=== PATIENT | female | born 1985 | race Caucasian/White ===

== ENCOUNTER 2021-10-27 09:56 | Emergency (ER) | payer SELFPAY ==
[2021-10-27 10:15] VITALS: BP 121/88; PULSE 85; RESP 17; TEMP 36.6; O2SAT 99; BMI 35.6
--- NOTE | 2021-10-27 10:29 | W.ED.BACK ---
HPI - Back Pain/Injury General: Chief Complaint: Fall Stated Complaint: low back pain Time Seen by Provider: 10/27/21 09:59 Source: patient Mode of arrival: ambulatory Limitations: no limitations History of Present Illness: Patient is a 36-year-old female who presents to the ED today for evaluation of a fall/back injury that occurred 4 to 5 days ago when she slipped and fell going down a stair. She states her lower right back struck the edge of the stair. She has noticed significant ecchymosis to the area. She is continuing to be ambulatory without assistance since the fall. No other injuries or complaints at this time. She has no radicular symptoms. MD elicited complaint: back injury Pertinent past history: recent trauma Onset (ago): day(s) Timing: constant Severity: moderate Similar Symptoms Previously: No Location: lumbar spine and right lower back Radiation: none Exacerbating factors: movement and walking Relieving factors: other (motrin) Associated symptoms: Reports no associated symptoms; Deny abdominal pain, chills, difficulty walking, dysuria, fatigue, fever(s) or hematuria Treatments prior to arrival: NSAIDS Work related injury: No Review of Systems Const: Denies: fever(s), chills, body aches, fatigue or malaise Card: Denies: chest pain Resp: Denies: dyspnea GI: Denies: abdominal pain : Denies: flank pain, dysuria or hematuria Musc: Reports: back pain; Denies: neck pain, extremity pain, extremity swelling, joint pain or joint swelling Skin/Breast: Reports: other (bruising) Neuro: Denies: headache(s), numbness in extremities, weakness in extremities, sensory changes or difficulty walking Physical Exam Const: COMMON NORMALS: no acute distress, patient oriented x3, no limitations and alert GENERAL APPEARANCE: cooperative NUTRITIONAL APPEARANCE: overweight ORIENTATION/CONSCIOUSNESS: Yes awake, Yes oriented to person, Yes oriented to place and Yes oriented to time GI: COMMON NORMALS: Normal to inspection, nondistended, normoactive bowel sounds present, Soft to palpation and non-tender PALPATION: Yes Soft to palpation : COMMON NORMALS: Yes no CVA tenderness BLADDER/KIDNEY EXAM: Yes no CVA tenderness Back/Pelvis: COMMON NORMALS: no CVA tenderness THORACIC SPINE/UPPER BACK: No thoracic spinal tenderness, No paraspinal muscle tenderness and No paraspinal muscle spasm LUMBAR SPINE/LOWER BACK: Yes lumbar ROM normal, Yes paraspinal muscle tenderness and No paraspinal muscle spasm SACRUM: tenderness COCCYX: Coccyx tenderness present BACK IMAGE (FEMALE): 1. large hematoma/ecchymosis Extremity: COMMON NORMALS: normal to inspection, full ROM and capillary refill normal GENERAL: Yes normal exam except as noted Neuro: COMMON NORMALS: patient oriented x3, moves all extremities, no focal motor deficits, no sensory deficits noted and gait normal SENSORIUM/ORIENTATION: Yes alert, Yes oriented to person, Yes oriented to place and Yes oriented to time MOTOR EXAM: 5/5 motor strength present throughout Course Vital Signs: Vital signs: Vital Signs Temperature 98 F 10/27/21 10:15 Pulse Rate 85 10/27/21 10:15 Respiratory Rate 17 10/27/21 10:15 Blood Pressure 121/88 10/27/21 10:15 Pulse Oximetry 99 10/27/21 10:15 MDM - Back Pain/Injury Medical Decision Making XRs negative. Recommend conservative therapies at home. Follow-up with primary care in 3 to 5 days if symptoms do not seem to be improving. Return to ED precautions given. Will prescribe a small amount of pain medications as patient states she is having trouble sleeping secondary to discomfort. Labs Radiology Impressions Lumbar Spine X-Ray 10/27/21 10:42 IMPRESSION: No acute abnormality. Pelvis X-Ray 10/27/21 10:42 IMPRESSION: No acute abnormality. Sacrum and Coccyx X-Ray 10/27/21 10:42 IMPRESSION: No acute abnormality. Discharge Plan Discharge Patient Disposition: Home Clinical Impression: Contusion of back Qualifiers: Encounter type: initial encounter Laterality: right Qualified Code(s): S20.221A - Contusion of right back wall of thorax, initial encounter Traumatic hematoma of lower back Qualifiers: Encounter type: initial encounter Qualified Code(s): S30.0XXA - Contusion of lower back and pelvis, initial encounter Condition: Stable Prescriptions: New tramadol 50 mg tablet 50 mg PO Q6H PRN (Reason: pain) Qty: 14 0RF Discharge Orders: Discharge ED (Routine); Ordered 10/27/21 Ordered By: Annamaria Fields Coding Level of Care Code ED Employee Benefits Attorney for Chg Fwd Exam Problem Focused
--- NOTE | 2021-10-27 10:42 | XR_ITS ---
WS: [id number] XR lumbar spine 2-3V* [id number] REASON FOR EXAM: fall, ecchymosis FINDINGS: Mild rotatory scoliosis convex left. No vertebral body compression deformity or focal lesion. Intervertebral disc spaces are relatively well-preserved. No facet joint abnormality. No spondylolisthesis. XR/XR lumbar spine 2-3V* [id number] IMPRESSION: No acute abnormality.
--- NOTE | 2021-10-27 10:42 | XR_ITS ---
WS: [id number] XR pelvis 1-2V* [id number] REASON FOR EXAM: fall, ecchymosis FINDINGS: Sacrum and iliac wings are intact. Superior and inferior pubic ramus are normal. No abnormality of the hips is identified. XR/XR pelvis 1-2V* [id number] IMPRESSION: No acute abnormality.
--- NOTE | 2021-10-27 10:42 | XR_ITS ---
WS: [id number] XR sacrum coccyx min 2V [id number] REASON FOR EXAM: fall, ecchymosis FINDINGS: No fracture or dislocation is identified. XR/XR sacrum coccyx min 2V [id number] IMPRESSION: No acute abnormality.
== END 2021-10-27 12:27 | disposition home or self-care (01) ==
PROVIDERS: Emergency Provider Physician Assistant
DX: S20.221A Contusion of right back wall of thorax, initial encounter (principal); S30.0XXA Contusion of lower back and pelvis, initial encounter; W01.0XXA Fall on same level from slipping, tripping and stumbling without subsequent striking against object, initial encounter
CPT/HCPCS: 72100; 72170; 72220; 99283

== ENCOUNTER 2022-07-29 02:53 | Emergency (ER) | payer SELFPAY ==
[2022-07-29 03:06] VITALS: BP 114/87; PULSE 119; RESP 18; TEMP 36.5; O2SAT 98; BMI 32.0
--- NOTE | 2022-07-29 03:24 | W.ED.FEMALGU ---
HPI - Female Genitourinary General: Chief complaint: Urogenital-Female Stated complaint: abdomen pain, discharge, Possible STD's Time Seen by Provider: 07/29/22 02:55 Source: patient Mode of arrival: ambulatory Limitations: no limitations History of Present Illness: 37-year-old female states she been having vaginal discharge and with some pelvic pain over the last week. She is here with another individual she is sexually active with with similar symptoms. States she had multiple sexual partners last 2 to 3 weeks. She denies any severe pain denies any fever denies any vomiting or diarrhea. Associated symptoms: Deny abdominal pain or nausea Review of Systems Const: Denies: fever(s) or chills Card: Denies: chest pain GI: Denies: abdominal pain, nausea or vomiting : Reports: dysuria Musc: Denies: back pain Skin/Breast: Denies: rash PFSH ED PFSH: Medical History (Updated 07/29/22 @ 03:51 by Soraya Rubalcava MD) No pertinent past medical history Social History (Updated 07/29/22 @ 03:25 by Soraya Rubalcava MD) Substance/Drug Use: unknown Physical Exam Const: COMMON NORMALS: no acute distress, patient oriented x3 and healthy appearing HENMT: COMMON NORMALS: normocephalic and atraumatic HEAD & SCALP: normocephalic and atraumatic Eye: COMMON NORMALS: conjunctivae normal CONJUNCTIVA: Yes conjunctivae normal Neck/C-Spine: COMMON NORMALS: full ROM Chest: COMMONS NORMALS: normal inspection of the chest Resp: COMMON NORMALS: normal respiratory effort GI: COMMON NORMALS: Normal to inspection, nondistended, normoactive bowel sounds present, Soft to palpation, non-tender and no masses PALPATION: Yes Soft to palpation Extremity: COMMON NORMALS: normal to inspection and full ROM Neuro: COMMON NORMALS: patient oriented x3, moves all extremities and no focal motor deficits Psych: COMMON NORMALS: mental status grossly normal, Normal thought process present and cooperative THOUGHT PROCESS: Normal thought process present Skin: COMMON NORMALS: no rashes or lesions noted and no wounds GENERAL SKIN EXAM: no rashes or lesions noted Course Vital Signs: Vital signs: Vital Signs Temperature 97.7 F 07/29/22 03:06 Pulse Rate 119 H 07/29/22 03:06 Respiratory Rate 18 07/29/22 03:06 Blood Pressure 114/87 07/29/22 03:06 Pulse Oximetry 98 07/29/22 03:06 Oxygen Delivery Me thod Room Air 07/29/22 03:06 MDM - Female Medical Decision Making Patient presents here with vaginal discharge likely an STD did give her Rocephin we will prescribe her doxycycline she did have trichomonas as well we will give her Flagyl she is stable for discharge she is to follow-up with PCP and return if worsening. Discharge Plan Discharge Patient Disposition: Home Clinical Impression: STD (female) Prescriptions: No Action tramadol 50 mg tablet 50 mg PO Q6H PRN (Reason: pain) Qty: 14 0RF Discharge Orders: Discharge ED (Routine); Ordered 07/29/22 Ordered By: Soraya Rubalcava Discharge Diet: Advance as tolerated Discharge Activity: Resume usual activity Patient Instructions: Sexually Transmitted Diseases (ED) Coding Level of Care Code ED Client Services Coordinator for Kimberly Dean
[2022-07-29] MEDS: cefTRIAXone 1,000 MG in water for injection-sterile 2.1 ML 2 MG IM (03:30)
[2022-07-29] MEDS: metroNIDAZOLE 500 MG Tablet 2000 MG PO (04:22)
--- NOTE | 2022-07-30 14:55 | DCPLANNER ---
manager project management called patient due to no primary care physician - no answer at this time.
== END 2022-07-29 04:23 | disposition home or self-care (01) ==
PROVIDERS: Emergency Provider Emergency Medicine
DX: A64 Unspecified sexually transmitted disease (principal)
CPT/HCPCS: 87210; 87491; 87591; 96365; 96366; 96372; 99284; J0696

== ENCOUNTER 2022-09-27 11:10 | Emergency (ER) | payer SELFPAY ==
[2022-09-27 11:12] VITALS: BP 137/106; PULSE 109; RESP 18; TEMP 36.9; O2SAT 96
--- NOTE | 2022-09-27 11:27 | XR_ITS ---
WS: [id number] EXAMINATION: XR finger LT min 2V [id number] REASON FOR EXAM: pain COMPARISON: None available. ORDER DATE: 09/27/2022 11:40 AM FINDINGS: There is no sign of any acute osseous or articular abnormality. There are no specific soft tissue abn ormalities. XR/XR finger LT min 2V [id number] IMPRESSION: No acute osseous change
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
[2022-09-27 11:31] LABS: Basophils % 0.2 %; Eosinophils # 0.1 10^3/uL (0.0-0.8); Hemoglobin 13.3 g/dL (11.5-15.3); Lymphocytes # 3.2 10^3/uL (0.8-4.8); Lymphocytes % 23.7 %; Mean Corpuscular HGB Conc 32.4 g/dL (30.0-36.0); Mean Corpuscular Hemoglobin 28.7 pg (28.0-34.0); Mean Corpuscular Volume 88.6 fl (81-99); Monocytes % 7.6 %; Neutrophils # 9.11 10^3/uL (1.8-7.7); Neutrophils % 67.2 %; Nucleated Red Blood Cells % 0 %; Platelet Count 254 10^3/cmm (130-400); Red Blood Count 4.63 10^6/uL (4.1-5.3); Red Cell Distribution Width 13.2 % (12.1-15.1); White Blood Count 13.6 10^3/uL (4.0-10.0)
[2022-09-27] MEDS: sodium chloride 0.9% 1,000 ML 999 ML IV (11:35)
[2022-09-27 11:42] VITALS: BP 134/82; PULSE 96; O2SAT 98
[2022-09-27 11:52] LABS: Alanine Aminotransferase 12 U/L (0-33); Albumin Level 3.9 g/dL (3.5-5.2); Alkaline Phosphatase 60 U/L (35-105); Blood Urea Nitrogen 13 mg/dL (6-20); Carbon Dioxide 20 mmol/L (22-29); Chloride 104 mmol/L (98-107); Globulin 3.3 g/dL (1.3-4.6); Glomerular Filtration Rate 113.8 mL/min (90-130); Glucose 94 mg/dL (65-115); Osmolality Calculated 286 mOsm/kg (285-295); Sodium 138 mmol/L (136-145); Total Bilirubin 0.9 mg/dL (0.15-1.2); Total Protein 7.2 g/dL (6.6-8.7)
[2022-09-27 11:55] LABS: Anion Gap 18.3 (5-19); Aspartate Amino Transferase 15 U/L (0-32); Potassium 4.3 mmol/L (3.5-5.1)
[2022-09-27 11:58] LABS: HCG, Serum Qual Negative (Negative)
[2022-09-27 12:46] VITALS: BP 124/81; PULSE 110; O2SAT 99
== END 2022-09-27 13:36 | disposition home or self-care (01) ==
PROVIDERS: Emergency Provider Family Medicine
DX: N92.1 Excessive and frequent menstruation with irregular cycle (principal)
CPT/HCPCS: 73140; 80053; 84703; 85025; 96360; 99284; J7030

== ENCOUNTER 2022-11-05 14:52 | Emergency (ER) | payer SELFPAY ==
[2022-11-05 14:54] VITALS: BP 122/74; PULSE 108; RESP 18; TEMP 37; O2SAT 98; BMI 28.3
--- NOTE | 2022-11-05 15:04 | ECG_ITS ---
[facility] Test Date: 2022-11-05 Pat Name: Janay Lau Department: Room: Gender: Female Route Sales Manager: : 1985 Requested By: Chris Costa Order Number: [id number] Karla MD: Diane Viveros M.D. Measurements Intervals [place] Rate: 101 P: 45 MD: 131 QRS: 47 QRSD: 89 T: 36 QT: 345 QTc: 447 Interpretive Statements SINUS TACHYCARDIA ABNORMAL RHYTHM ECG No previous ECG available for comparison Electronically Signed On 11-05-2022 18:39:24 CDT by Diane Viveros M.D. [id number]
--- NOTE | 2022-11-05 15:04 | XR_ITS ---
WS: [id number] EXAMINATION: XR chest 1V portable [id number] REASON FOR EXAM: syncope COMPARISON: None available. ORDER DATE: 11/05/2022 3:04 PM TECHNIQUE: A single, portable frontal chest x-ray was obtained. X-RAY FINDINGS: The lungs are clear. Pleural spaces are clear. No pleural effusions or pneumothorax. Cardiomediastinal silhouette is normal. No evidence for pulmonary edema. Soft tissue and osseous structures are unremarkable. No tubes or lines are present. XR/XR chest 1V portable [id number] IMPRESSION: Unremarkable frontal portable chest x-ray.
--- NOTE | 2022-11-05 15:14 | ED_ITS ---
HPI - Syncope General: Chief Complaint: Syncope Stated Complaint: heat exhaustion, syncope Time Seen by Provider: 11/05/22 14:55 History of Present Illness: Patient presents to the ER by EMS with complaints of syncopal episode. Patient was walking around outside in the sun all day long by [employer] when she walked up inside and collapsed at the register. Patient does have a history of IV drug use but claims she has not used drugs today. Patient is alert and oriented but lethargic appearing upon arrival. States she does not have a history of passing out. Patient did not hit her head and complains of no pain Review of Systems General: Reports: 10 or more systems reviewed and unremarkable except in HPI and below PFSH ED PFSH: Medical History No pertinent past medical history Social History Substance/Drug Use: unknown Physical Exam Const: COMMON NORMALS: no acute distress, average body habitus, patient orient ed x3, no limitations, healthy appearing, alert and well nourished HENMT: COMMON NORMALS: normocephalic, atraumatic, hearing grossly normal bilaterally, external ears normal, Normal external nose present and moist oral mucous membranes HEAD & SCALP: normocephalic and atraumatic NOSE: Normal external nose present EXTERNAL EAR: Yes external ears normal Eye: COMMON NORMALS: Equal, round and reactive pupils present, EOMs intact bilaterally, conjunctivae normal and no scleral icterus CONJUNCTIVA: Yes conjunctivae normal PUPIL: Yes Equal, round and reactive pupils present Neck/C-Spine: COMMON NORMALS: full ROM, no lymphadenopathy, supple, no meningeal signs, no JVD and Thyroid normal THYROID: Thyroid normal Chest: COMMONS NORMALS: normal inspection of the chest and normal palpation of entire chest wall Resp: COMMON NORMALS: normal respiratory effort, No retractions, No use of accessory muscles and clear to auscultation bilaterally AUSCULTATION: clear to auscultation bilaterally Cardio: COMMON NORMALS: no JVD, regular rate, regular rhythm, S1 normal heart sound present, S2 normal heart sound present, No gallops present (Cardio), No clicks present (Cardio), No murmurs present (Cardio) and No rub (Cardio) RATE: regular rate RHYTHM: regular rhythm HEART SOUNDS: S1 normal heart sound present and S2 normal heart sound present GI: COMMON NORMALS: Normal to inspection, nondistended, normoactive bowel sounds present, Soft to palpation, non-tender, No hepatosplenomegaly present and no masses PALPATION: Yes Soft to palpation and Yes No hepatosplenomegaly present : COMMON NORMALS: Yes no CVA tenderness BLADDER/KIDNEY EXAM: Yes no CVA tenderness Back/Pelvis: COMMON NORMALS: no CVA tenderness Neuro: COMMON NORMALS: patient oriented x3 SENSORIUM/ORIENTATION: Yes alert MENINGEAL SIGNS: Yes no meningeal signs Course Vital Signs: Vital signs: Vital Signs Temperature 98.6 F 11/05/22 14:54 Pulse Rate 74 11/05/22 16:30 Respiratory Rate 18 11/05/22 16:30 Blood Pressure 122/74 11/05/22 15:29 Pulse Oximetry 94 11/05/22 16:30 Oxygen Delivery Me thod Room Air 11/05/22 16:30 MDM - Syncope Medical Decision Making Presents the ER by EMS with complaints of syncope at [facility]. Drowsy appearing. Patient is a known drug user. Lab work was obtained which was unremarkable. Patient pulled out her own IV and peed in the trash can because she said no one would respond to her and help her out. Patient be discharged home. Differential Diagnosis Likely dehydration; Unlikely syncope due to orthostatic hypotension, vasovagal syncope, complete atrioventricular block, subarachnoid hemorrhage or pulmonary embolism Medical Records I reviewed the patient's medical records. Lab Data I reviewed the patient's lab results. 11/05/22 15:00 11/05/22 15:00 Radiology Impressions Chest X-Ray 11/05/22 15:04 IMPRESSION: Unremarkable frontal portable chest x-ray. Laboratory Results WBC 8.9 10^3/uL (4.0-10.0) 11/05/22 15:00 RBC 4.50 10^6/uL (4.1-5.3) 11/05/22 15:00 Hgb 12.8 g/dL (11.5-15.3) 11/05/22 15:00 Hct 38.9 % (37.0-47.0) 11/05/22 15:00 MCV 86.4 fl (81-99) 11/05/22 15:00 MCH 28.4 pg (28.0-34.0) 11/05/22 15:00 MCHC 32.9 g/dL (30.0-36.0) 11/05/22 15:00 RDW 12.9 % (12.1-15.1) 11/05/22 15:00 Plt Count 250 10^3/cmm (130-400) 11/05/22 15:00 MPV 9.6 fL (7.4-10.4) 11/05/22 15:00 Neut % (Auto) 63.5 % 11/05/22 15:00 Lymph % (Auto) 25.5 % 11/05/22 15:00 Griggs % (Auto) 8.5 % 11/05/22 15:00 Eos % (Auto) 1.9 % 11/05/22 15:00 Baso % (Auto) 0.3 % 11/05/22 15:00 Neut # (Auto) 5.63 10^3/uL (1.8-7.7) 11/05/22 15:00 Lymph # (Auto) 2.3 10^3/uL (0.8-4.8) 11/05/22 15:00 [place]iggs # (Auto) 0.8 10^3/uL (0.2-0.9) 11/05/22 15:00 Eos # (Auto) 0.2 10^3/uL (0.0-0.8) 11/05/22 15:00 Baso # (Auto) 0.0 10^3/uL (0.0-0.1) 11/05/22 15:00 Nucleated RBC % (auto) 0 % 11/05/22 15:00 Nucleated RBCs # 0.0 /100WBC 11/05/22 15:00 Sodium 139 mmol/L (136-145) 11/05/22 15:00 Potassium 3.3 mmol/L (3.5-5.1) L 11/05/22 15:00 Chloride 102 mmol/L (98-107) 11/05/22 15:00 Carbon Dioxide 26 mmol/L (22-29) 11/05/22 15:00 Anion Gap 14.3 (5-19) 11/05/22 15:00 BUN 9 mg/dL (6-20) 11/05/22 15:00 Creatinine 0.7 mg/dL (0.5-0.9) 11/05/22 15:00 GFR Calculation 95.2 mL/min (90-130) 11/05/22 15:00 Glucose 113 mg/dL (65-115) 11/05/22 15:00 Calculated Osmolality 287 mOsm/kg (285-295) 11/05/22 15:00 Calcium 8.7 mg/dL (8.5-10.5) 11/05/22 15:00 Magnesium 2.1 mg/dL (1.7-2.3) 11/05/22 15:00 Total Bilirubin 0.6 mg/dL (0.15-1.2) 11/05/22 15:00 AST 11 U/L (0-32) 11/05/22 15:00 ALT 10 U/L (0-33) 11/05/22 15:00 Alkaline Phosphatase 57 U/L (35-105) 11/05/22 15:00 Total Protein 7.1 g/dL (6.6-8.7) 11/05/22 15:00 Albumin 3.8 g/dL (3.5-5.2) 11/05/22 15:00 Globulin 3.3 g/dL (1.3-4.6) 11/05/22 15:00 EKG Data EKG 1: I personally reviewed and interpreted this EKG as follows: EKG interpretation date: 11/05/22 EKG interpretation time: 15:15 Prior EKG tracings: not available for review Interpretation: EKG showed ventricular rate 101 beats a minute, and sinus tachycardia, ME inte rval 131, QRS duration 89, QTc of 403, no ST-T wave changes Discharge Plan Discharge Patient Disposition: Home Clinical Impression: Syncope Qualifiers: Syncope type: unspecified Qualified Code(s): R55 - Syncope and collapse Condition: Stable Prescriptions: No Action acetaminophen 325 mg Tablet 975 mg PO QID PRN (Reason: Pain) Discharge Orders: Discharge ED (Routine); Ordered 11/05/22 Ordered By: Chris Costa Patient Instructions: Syncope (ED) Activity Restrictions/Additional Instructions: Please follow-up with your family practice doctor in the next 7 days or sooner as needed. Coding Level of Care Code ED Musical Engineer for Kimberly Dean
[2022-11-05 15:19] LABS: Basophils % 0.3 %; Eosinophils # 0.2 10^3/uL (0.0-0.8); Eosinophils % 1.9 %; Hematocrit 38.9 % (37.0-47.0); Hemoglobin 12.8 g/dL (11.5-15.3); Lymphocytes # 2.3 10^3/uL (0.8-4.8); Lymphocytes % 25.5 %; Mean Corpuscular HGB Conc 32.9 g/dL (30.0-36.0); Mean Corpuscular Hemoglobin 28.4 pg (28.0-34.0); Mean Corpuscular Volume 86.4 fl (81-99); Mean Platelet Volume 9.6 fL (7.4-10.4); Monocytes # 0.8 10^3/uL (0.2-0.9); Monocytes % 8.5 %; Neutrophils # 5.63 10^3/uL (1.8-7.7); Neutrophils % 63.5 %; Nucleated Red Blood Cells % 0 %; Platelet Count 250 10^3/cmm (130-400); Red Cell Distribution Width 12.9 % (12.1-15.1); White Blood Count 8.9 10^3/uL (4.0-10.0)
[2022-11-05 15:29] VITALS: BP 122/74; PULSE 105; RESP 18; O2SAT 98
[2022-11-05 15:34] LABS: Alanine Aminotransferase 10 U/L (0-33); Albumin Level 3.8 g/dL (3.5-5.2); Alkaline Phosphatase 57 U/L (35-105); Anion Gap 14.3 (5-19); Aspartate Amino Transferase 11 U/L (0-32); Blood Urea Nitrogen 9 mg/dL (6-20); Calcium 8.7 mg/dL (8.5-10.5); Carbon Dioxide 26 mmol/L (22-29); Chloride 102 mmol/L (98-107); Globulin 3.3 g/dL (1.3-4.6); Glomerular Filtration Rate 95.2 mL/min (90-130); Glucose 113 mg/dL (65-115); Magnesium 2.1 mg/dL (1.7-2.3); Osmolality Calculated 287 mOsm/kg (285-295); Potassium 3.3 mmol/L (3.5-5.1); Sodium 139 mmol/L (136-145); Total Bilirubin 0.6 mg/dL (0.15-1.2); Total Protein 7.1 g/dL (6.6-8.7)
[2022-11-05] MEDS: sodium chloride 0.9% 1,000 ML 999 ML IV ×2 (15:44→15:45)
[2022-11-05 16:00] VITALS: PULSE 81; RESP 18; O2SAT 94
[2022-11-05 16:30] VITALS: PULSE 74; RESP 18; O2SAT 94
--- NOTE | 2022-11-05 17:18 | PC.NURSE ---
When rounding on patient, Patient has taken all vital signs monitoring off and pulled out IV. Patient states she could not get a hold of anyone to help her. Call light was next to patient on the bed. Patient states she is ready to go. Provider notified.
== END 2022-11-05 17:43 | disposition home or self-care (01) ==
PROVIDERS: Emergency Provider Emergency Medicine
DX: R55 Syncope and collapse (principal)
CPT/HCPCS: 71045; 80053; 83735; 85025; 93005; 96360; 96361; 99285; J7030

== ENCOUNTER 2023-09-23 10:01 | Emergency (ER) | payer SELFPAY ==
[2023-09-23 10:02] VITALS: BP 106/71; PULSE 74; RESP 18; TEMP 36.5; O2SAT 97
--- NOTE | 2023-09-23 10:10 | W.ED.ANXIETY ---
HPI - Anxiety General: Chief Complaint: Anxiety Stated Complaint: panic attack Time Seen by Provider: 09/23/23 10:03 History of Present Illness: 38-year-old female who presents to the emergency room by ambulance with anxiety. Apparently she [place] another town at [place] hotel and was alone and became anxious and needed a ride home so she called an ambulance. Initially she said she had anxiety but once in the ambulance on the way here she requested that they just take her home and ambulance personnel said they could not so she said she would come to the ER. Upon arrival here she says she just wants to go home. She is a bit somnolent at times. She denies homicidal or suicidal ideation. No focal motor deficits. No slurred speech. Review of Systems Narrative: Constitutional symptoms: Negative except as documented in HPI. Skin symptoms: Negative except as documented in HPI. Eye symptoms: Negative except as documented in HPI. ENMT symptoms: Negative except as documented in HPI. Respiratory symptoms: Negative except as documented in HPI. Cardiovascular symptoms: Negative except as documented in HPI. Gastrointestinal symptoms: Negative except as documented in HPI. Genitourinary symptoms: Negative except as documented in HPI. Musculoskeletal symptoms: Negative except as documented in HPI. Neurologic symptoms: Negative except as documented in HPI. Psychiatric symptoms: Negative except as documented in HPI. Endocrine symptoms: Negative except as documented in HPI. [facility] ED PFSH: Medical History No pertinent past medical history Social History Substance/Drug Use: unknown Physical Exam Narrative: EXAM NARRATIVE: General: Somnolent but arousable, no acute distress. Skin: Warm, dry. Head: Normocephalic, atraumatic. Neck: Supple, trachea midline. Eye: Extraocular movements are intact. Ears, nose, mouth and throat: mucosa moist. Cardiovascular: Regular, Normal peripheral perfusion. Respiratory: Lungs are clear to auscultation, respirations are non-labored, breath sounds are equal, Symmetrical chest wall expansion. Gastrointestinal: Soft, Nontender, Non distended, Normal bowel sounds. Musculoskeletal: Normal ROM, no deformity. Neurological: Alert and oriented, No focal neurological deficit observed. Psychiatric: Cooperative, odd affect, may be under the influence of something. Course Vital Signs: Vital signs: Vital Signs Temperature 97.7 F 09/23/23 10:02 Pulse Rate 74 09/23/23 10:02 Respiratory Rate 18 09/23/23 10:02 Blood Pressure 106/71 09/23/23 10:02 Pulse Oximetry 97 09/23/23 10:02 Oxygen Delivery Me thod Room Air 09/23/23 10:02 MDM - Anxiety Medical Decision Making Assessment and plan: Malingering Anxiety - Discharged home - Discussed plan with patient. Answered any questions. - Evaluation and treatment of this problem were appropriate in the emergency setting. All radiology interpretation(s) finalized by discharge Discharge Plan Discharge Patient Disposition: Home Clinical Impression: Malingering, Anxiety Condition: Stable Prescriptions: No Action acetaminophen 325 mg Tablet 975 mg PO QID PRN (Reason: Pain) Discharge Orders: Discharge ED (Routine); Ordered 09/23/23 Ordered By: Vera Roberto Discharge Diet: Usual diet Discharge Activity: Resume usual activity Patient Instructions: Anxiety (ED) Activity Restrictions/Additional Instructions: Thank you for choosing [facility] for your healthcare needs today. Please realize this is an emergency room and that we are providing you with a medical screening exam and this may not be complete and all inclusive of all the testing and or work up that you may need to determine your ailment or severity of your illness. You have been screened and evaluated and felt safe for discharge. Health conditions do change or evolve sometimes and as such it is important that you follow up with your Primary Doctor to be re checked, 3-5 days is a general good time frame for follow up. You are always welcome to return to the ED for re assessment if your symptoms are worsening or you have new concerns Coding Level of Care Code ED Glove Turner And Former for Kimberly Dean
[2023-09-23 10:25] VITALS: BP 106/71; PULSE 74; RESP 18; TEMP 36.5; O2SAT 97
== END 2023-09-23 10:26 | disposition home or self-care (01) ==
PROVIDERS: Emergency Provider Emergency Medicine
DX: F41.9 Anxiety disorder, unspecified (principal); Z76.5 Malingerer [conscious simulation]
CPT/HCPCS: 99281